=== PATIENT | male | born 1995 | race Caucasian/White ===

== ENCOUNTER 2019-10-23 10:27 | Day surgery (SDC) | payer BC ==
[2019-10-23] MEDS ORDERED: Lactated Ringers 1,000 ML IV SCH (11:00)
[2019-10-23] MEDS ORDERED: DIPRIVAN 200 MG/20 ML IV ONE (12:10)
[2019-10-23] MEDS ORDERED: SUBLIMAZE 100 MCG/2 ML ONE ×2 (12:11→12:19)
[2019-10-23] MEDS ORDERED: Xylocaine-Mpf 2% 5 Ml Vial ONE (12:11)
[2019-10-23] MEDS ORDERED: Versed 2 MG/2 ML Injection ONE (12:11)
[2019-10-23] MEDS ORDERED: KEFZOL 1 GM ONE (12:19)
[2019-10-23] MEDS ORDERED: Sensorcaine 0.25% 10 ML ONE ×2 (12:40→13:15)
--- NOTE | 2019-10-23 13:12 | HP ---
DATE OF SURGERY: 10/23/2019 HISTORY OF PRESENT ILLNESS: The patient is a 24 year old with multiple subcutaneous macular lipoma right thigh, left and right arm. PAST MEDICAL HISTORY: No chronic illnesses. PAST SURGICAL HISTORY: Torn ACL. MEDICATIONS: None. ALLERGIES: NKDA. FAMILY HISTORY: Negative in regards to this problem. SOCIAL HISTORY: No smoking. REVIEW OF SYSTEMS: Fourteen systems reviewed. No chest pain or palpitations. Other systems negative or noncontributory as above and per preadmission questionnaire. PHYSICAL EXAMINATION: GENERAL: No acute distress. HEENT: Sclerae nonicteric. NECK: No JVD. CHEST: Equal excursion, nonlabored breathing. CVS: Regular rate and rhythm. ABDOMEN: Soft. EXTREMITIES: Subcutaneous mass left and right arm, right thigh. NEURO: Alert, oriented, moving extremities symmetrically. No gross motor deficits noted. PSYCH: Appropriate mood and affect. IMPRESSION: Large subcutaneous masses right thigh, left arm, right arm in need of excisional biopsy. Question whether these are lipomas or other etiology. Risks and benefits explained in detail including but not limited to bleeding or infection, risk of wound dehiscence possibly requiring packing, general risk of aches, pains, burning or numbness, possibly chronic in nature, possibility what we excise likely will not recur but could get similar adjacent to nodule, subcutaneous masses adjacent to or elsewhere on his body. He understands and agrees to the planned procedure, will proceed with excisional biopsy of bilateral enlarging subcutaneous mass or lipoma as an outpatient.
[2019-10-23 14:39] VITALS: BP 146/92; PULSE 71; O2SAT 96
--- NOTE | 2019-10-24 09:56 | OP ---
SURGERY DATE/TIME: 10/23/2019 1212 PREOPERATIVE DIAGNOSIS: Enlarging painful, symptomatic bilateral forearm and right thigh subcutaneous masses or lipoma. POSTOPERATIVE DIAGNOSIS: Enlarging painful, symptomatic bilateral forearm and right thigh subcutaneous masses or lipoma. PROCEDURES: 1) Excisional biopsy medial right thigh lipoma (approximately 5 cm). 2) Excisional biopsy inferior right thigh lipoma (approximately 3 cm). 3) Excisional biopsy of left forearm lipoma (3 cm). 4) Excisional biopsy of right forearm lipoma (2 cm). SURGEON: Dr. Deyvi Mercado. ANESTHESIA: General. ESTIMATED BLOOD LOSS: Minimal. INDICATIONS: As noted above. Risks and benefits explained in detail and not limited to and consent obtained. In the preoperative holding area the site was confirmed and marked with the patient. DESCRIPTION OF PROCEDURE AND FINDINGS: He was then taken to the operating room. General anesthesia induced. Bilateral upper extremities and right thigh were prepped and draped in usual sterile fashion. After official time out and no disagreement with planned procedure, incision was made overlying the left forearm subcutaneous mass. Dissection carried down to subcutaneous tissue circumferentially around this lobulated lipomatous density carefully mobilized upwards about 3 cm in size and passed off for pathology. Good hemostasis noted. There was no evidence of any palpable deeper nodule. The wound is then closed in layers. Subcu closed with 3-0 Vicryl. Skin closed with 4-0 Vicryl. Steri-Strips and sterile dressing applied. 0.25% Marcaine local injected at the beginning of the procedure. Attention is then turned to the right thigh. The medial aspect of the right thigh a longitudinal incision made overlying the area. Dissection carried down circumferentially around this much larger lipomatous density about 5 cm in size, lobulated lipomatous density passed off for pathology. Subcu closed with 3-0 Vicryl. Skin closed with 4-0 Vicryl. Again this measured 5 cm in size. Attention is then turned to the more anterior right thigh area. Longitudinal incision made over the top. Dissection carried down and circumferentially around this lobulated, lipomatous density that is about 3 cm in size and passed off for pathology. No other deeper palpable nodule. Good hemostasis noted. Subcu closed with 3-0 Vicryl. Skin closed with 4-0 Vicryl. 0.25% Marcaine local injected along the skin incision. Steri-Strips and sterile dressing applied at the end of the procedure. Attention is then turned to the right forearm. The site had been marked. Longitudinal incision made over the top. Dissection carried down circumferentially around this lobulated lipomatous density this measured about 2 cm in size, carefully mobilized up off the underlying fascia and passed off. Good hemostasis noted. Subcu closed with 3-0 Vicryl. Skin closed with 4-0 Vicryl. Steri-Strips and sterile dressing applied. 0.25% Marcaine local injected along the wound. The patient tolerated the procedure well. There were no immediate complications. Findings discussed with his mother over the phone. He was transferred to the recovery room in stable condition. He was given a script for ibuprofen as he became quite nauseated with [place] in the past.
== END 2019-10-23 14:20 | disposition home or self-care (01) ==
LOC: SDC 10:27
PROVIDERS: ATTEND Surgery
DX: D17.22 Benign lipomatous neoplasm of skin and subcutaneous tissue of left arm (principal); D17.21 Benign lipomatous neoplasm of skin and subcutaneous tissue of right arm; D17.23 Benign lipomatous neoplasm of skin and subcutaneous tissue of right leg
CPT/HCPCS: 88304; J0690; J2250; J2704; J3010